=== PATIENT | female | born 2000 | race Two or more races ===

== ENCOUNTER 2022-12-17 18:32 | Emergency (ER) | payer SELFPAY ==
[~2022-12-17] VITALS: Ht 170.2 cm; Wt 68.0 kg
[2022-12-17] MEDS ORDERED: KETOROLAC TROMETH 30 MG/ML 1ML VIAL IM ONE (22:00)
[2022-12-17 22:06] VITALS: BP 108/74
== END 2022-12-17 22:31 | disposition home or self-care (01) ==
LOC: ER 18:32
DX: S93.401A Sprain of unspecified ligament of right ankle, initial encounter (principal); X50.1XXA Overexertion from prolonged static or awkward postures, initial encounter; Y93.89 Activity, other specified; Y92.89 Other specified places as the place of occurrence of the external cause; Y99.8 Other external cause status
CPT/HCPCS: 73610; 96372; 99283; J1885